=== PATIENT | male | born 1935 | race Caucasian/White ===

== ENCOUNTER → 2020-03-03 | Outpatient (CLI) | payer MEDICARE, OTHER ==
--- NOTE | 2020-03-03 13:10 | RAD ---
EXAM: Thyroid sonogram. HISTORY: Abnormal thyroid hormone laboratory values. TECHNIQUE: Sonographic imaging of the thyroid was performed. COMPARISON: None. FINDINGS: The right there are lobe measures 4.7 x 1.8 x 1.8 cm. The left thyroid lobe measures 4.4 x 1.8 x 1.7 cm. The thyroid isthmus measures 7.5 mm in thickness. There is a tiny cyst within the superior left thyroid lobe measuring 3 mm. No suspicious solid thyroid nodule is seen. The thyroid parenchyma is slightly heterogeneous. IMPRESSION: Slightly heterogeneous thyroid parenchyma and tiny left thyroid cyst. No suspicious nodule is seen. The thyroid is normal in size. Electronically signed by: Iveth Echols MD (03/03/2020 1:07 PM) [id number]
== END ==
LOC: US 12:35
PROVIDERS: ATTEND Family Medicine
DX: E04.1 Nontoxic single thyroid nodule (principal); R79.89 Other specified abnormal findings of blood chemistry
CPT/HCPCS: 76536

== ENCOUNTER 2020-06-06 07:57 | Emergency (ER) | payer MEDICARE, OTHER ==
[~2020-06-06] VITALS: Ht 182.9 cm; Wt 91.4 kg
[2020-06-06 08:00] VITALS: BP 157/105
--- NOTE | 2020-06-06 08:29 | PHYS DOC ---
General Adult EDM: Chief Complaint: Palpitations HPI: HPI: Patient is a 85-year-old male coming in for palpitations. Patient states he woke up this morning and felt his heart racing. Some of the side of bed like his heart was irregular and skipping a beat. Has a history of A. fib which was cardioverted has been on amiodarone. Denies any chest pain, shortness of breath. Patient states he has not felt well for the past month and complaining of joint pain. States he had normal p.o. intake. Denies any recent fevers, cough, vomiting or diarrhea. No recent changes in medications, and states he has been compliant on his medications. No lower extremity edema. Review of Systems: Review of Systems: All other systems within normal limits except for as noted in the HPI Physical Exam: PE: Constitutional: Well developed, well nourished, no acute distress, non-toxic ap pearance. [] HENT: Normocephalic, atraumatic, bilateral external ears normal, nose normal. [] Eyes: PERRLA, conjunctiva normal, no discharge. [] Neck: No rigidity, supple, no stridor. [] Cardiovascular: Irregularly irregular rhythm, brisk cap refill and symmetric pulses [] Lungs & Thorax: Non labored symmetric respirations, no tachypnea or respiratory distress [] Abdomen: Soft, nondistended. Skin: Warm, dry, no erythema, no rash. [] Back: Unremarkable Extremities: No deformities, range of motion grossly intact, no lower extremity edema [] Neurologic: Alert and oriented X 3, no focal deficits noted. [] Psychologic: Affect normal, judgement normal, mood normal. [] EKG: EKG: Regular regular rhythm, multiple PVCs. No ST elevation or depression. [] Radiology/Procedures: Radiology/Procedures: Indication: Atrial fibrillation. Comparison: None. Findings: The cardiomediastinal silhouette is within the broad range of normal for size given AP technique. Symmetric opal. Aortic atherosclerotic calcifications. Mildly increased lung markings without a dense consolidation, layering effusion or pneumothorax. 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 Impression: No acute radiographic abnormality of the chest.[] Heart Score: Risk Factors: Risk Factors: DM, Current or recent (<one month) smoker, HTN, HLP, family history of CAD, obesity. Risk Scores: Score 0 - 3: 2.5% MACE over next 6 weeks - Discharge Home Score 4 - 6: 20.3% MACE over next 6 weeks - Admit for Clinical Observation Score 7 - 10: 72.7% MACE over next 6 weeks - Early Invasive Strategies Course & Med Decision Making: Course & Med Decision Making Pertinent Labs and Imaging studies reviewed. (See chart for details) Discussed v with hospitalist, he does not see need for admission. Patient can follow-up outpatient with his podiatric aide as long as he is taking an aspirin daily. Patient already taking baby aspirin. Advised him to continue taking his aspirin and follow-up with cardiology [] Nadira Disclaimer: Dragon Disclaimer: This electronic medical record was generated, in whole or in part, using a voice recognition dictation system. Departure Departure: Impression: Primary Impression: Atrial fibrillation Disposition: 01 DC HOME SELF CARE/HOMELESS Condition: STABLE Referrals: CECY LUJAN MD (PCP) Patient Instructions: Atrial Fibrillation GILBERTO GARBER MD Jun 06, 2020 08:29
[2020-06-06 08:49] LABS: BASO % 1 % (0-3); EOS # 0.4 x10^3/uL (0.0-0.7); EOS % 6 % (0-3); HEMATOCRIT 43.2 % (39.0-53.0); HEMOGLOBIN 13.7 g/dL (13.0-17.5); LYMPH # 1.7 x10^3/uL (1.0-4.8); LYMPH % 29 % (24-48); MEAN CORPUSCULAR HEMOGLOBIN 28 pg (25-35); MEAN CORPUSCULAR HGB CONC 32 g/dL (31-37); MEAN CORPUSCULAR VOLUME 87 fL (79-100); MONO # 0.7 x10^3/uL (0.0-1.1); MONO % 12 % (0-9); NEUT # 3.3 x10^3uL (1.8-7.7); NEUT % 54 % (31-73); PLATELET COUNT 209 x10^3/uL (140-400); RED BLOOD COUNT 4.97 x10^6/uL (4.30-5.70); RED CELL DISTRIBUTION WIDTH 15.2 % (11.5-14.5); WHITE BLOOD COUNT 6.1 x10^3/uL (4.0-11.0)
[2020-06-06 08:54] LABS: CALCIUM 9.3 mg/dL (8.5-10.1); POTASSIUM 3.9 mmol/L (3.5-5.1)
--- NOTE | 2020-06-06 08:54 | EKG ---
[address] [address] Test Date: 2020-06-06 Test Time: 08:05:23 Pat Name: JASSI RODRIGUEZ Department: Room: Gender: M Personal Trainer: MARK : [id number] Requested By: GILBERTO GARBER Order Number: [id number] Reading MD: Logan Andujar Measurements Intervals [place] Rate: 93 P: [place]: QRS: -24 QRSD: 76 T: 73 QT: 336 QTc: 420 Interpretive Statements ATRIAL FIBRILLATION LEFTWARD AXIS QRS(T) CONTOUR ABNORMALITY CONSISTENT WITH INFERIOR INFARCT PROBABLY OLD T ABNORMALITY IN HIGH LATERAL LEADS ABNORMAL ECG Electronically Signed On 06-08-2020 10:05:04 CHASSIS INSPECTOR by Logan Andujar
--- NOTE | 2020-06-06 08:57 | RAD ---
Study: XR CHEST 1V Indication: Atrial fibrillation. Comparison: None. Findings: The cardiomediastinal silhouette is within the broad range of normal for size given AP technique. Sym metric opal. Aortic atherosclerotic calcifications. Mildly increased lung markings without a dense consolidation, layering effusion or pneumothorax. 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 Impression: No acute radiographic abnormality of the chest. Electronically signed by: CONSTANTIN BISWAS MD (06/06/2020 8:55 AM) [id number]
[2020-06-06 09:07] LABS: ALBUMIN 3.8 g/dL (3.4-5.0); C REACTIVE PROTEIN 2.6 mg/L (0-3.3); MAGNESIUM 1.7 mg/dL (1.8-2.4); TOTAL BILIRUBIN 2.1 mg/dL (0.2-1.0); TOTAL PROTEIN 7.7 g/dL (6.4-8.2)
[2020-06-06 09:44] LABS: BACTERIA,URINE 0 /HPF (0-FEW); BILIRUBIN,URINE NEG (NEG); CLARITY,URINE CLEAR; COLOR,URINE YELLOW; GLUCOSE,URINE NEG (NEG); NITRITE,URINE NEG (NEG)
[2020-06-06 09:45] LABS: SQUAMOUS EPITHELIAL CELL,UR FEW /LPF
== END 2020-06-06 12:20 | disposition home or self-care (01) ==
LOC: ER 07:57
DX: I48.91 Unspecified atrial fibrillation (principal)
CPT/HCPCS: 36415; 71045; 80053; 81001; 83605; 83735; 83880; 84443; 84484; 85025; 85379; 85610; 86140; 93005; 99285

== ENCOUNTER → 2020-07-17 | Outpatient (CLI) | payer MEDICARE, OTHER | LOC: LAB 10:41 | PROVIDERS: ATTEND Internal Medicine Interventional Cardiology | DX: I48.91 Unspecified atrial fibrillation (principal); R79.89 Other specified abnormal findings of blood chemistry | CPT/HCPCS: 84443 ==

== ENCOUNTER → 2020-07-29 | Outpatient (CLI) | payer MEDICARE, OTHER ==
[2020-07-30 19:29] LABS: FREE T4 1.54 ng/dL (0.76-1.46)
[2020-07-30 19:30] LABS: THYROID STIM HORMONE (TSH) < 0.007 uIU/mL (0.358-3.740)
[2020-07-31 19:20] LABS: THYROXINE 10.4 ug/dL (4.5-12.0)
== END ==
LOC: LAB 12:32
PROVIDERS: ATTEND Internal Medicine Interventional Cardiology
DX: I10 Essential (primary) hypertension (principal); R79.89 Other specified abnormal findings of blood chemistry
CPT/HCPCS: 36415; 84436; 84439; 84443; 84480

== ENCOUNTER → 2020-12-11 | Outpatient (CLI) | payer MEDICARE, OTHER ==
[2020-12-11 14:56] LABS: CALCIUM 8.4 mg/dL (8.5-10.1); CREATININE 1.1 mg/dL (0.7-1.3); GFR 63.6; POTASSIUM 4.5 mmol/L (3.5-5.1)
== END ==
LOC: LAB 14:01
PROVIDERS: ATTEND Internal Medicine Interventional Cardiology
DX: I25.10 Atherosclerotic heart disease of native coronary artery without angina pectoris (principal)
CPT/HCPCS: 36415; 80048

== ENCOUNTER → 2021-02-10 | Outpatient (CLI) | payer MEDICARE, OTHER ==
[2021-02-10 12:28] LABS: BASO # 0.1 x10^3/uL (0.0-0.2); BASO % 1 % (0-3); EOS # 0.1 x10^3/uL (0.0-0.7); EOS % 2 % (0-3); HEMATOCRIT 42.3 % (39.0-53.0); LYMPH # 1.6 x10^3/uL (1.0-4.8); LYMPH % 21 % (24-48); MEAN CORPUSCULAR HEMOGLOBIN 32 pg (25-35); MEAN CORPUSCULAR HGB CONC 33 g/dL (31-37); MEAN CORPUSCULAR VOLUME 98 fL (79-100); MONO # 0.7 x10^3/uL (0.0-1.1); MONO % 9 % (0-9); NEUT # 5.3 x10^3uL (1.8-7.7); NEUT % 68 % (31-73); PLATELET COUNT 185 x10^3/uL (140-400); RED BLOOD COUNT 4.34 x10^6/uL (4.30-5.70); WHITE BLOOD COUNT 7.8 x10^3/uL (4.0-11.0)
[2021-02-10 12:46] LABS: ALBUMIN/GLOBULIN RATIO 1.1 (1.0-1.7); CALCIUM 9.1 mg/dL (8.5-10.1); CREATININE 0.9 mg/dL (0.7-1.3); POTASSIUM 4.2 mmol/L (3.5-5.1); TOTAL BILIRUBIN 2.9 mg/dL (0.2-1.0); TOTAL PROTEIN 7.6 g/dL (6.4-8.2)
[2021-02-10 14:47] LABS: % LYMPHS 18 % (24-48); % MONOS 13 % (0-10); % SEGS 69 % (35-66)
[2021-02-10 14:50] LABS: PLT ESTIMATE DECREASED (ADEQUATE)
== END ==
LOC: LAB 11:23
PROVIDERS: ATTEND Internal Medicine Interventional Cardiology
DX: I25.10 Atherosclerotic heart disease of native coronary artery without angina pectoris (principal); I48.19 Other persistent atrial fibrillation
CPT/HCPCS: 36415; 80053; 84443; 85007; 85025